=== PATIENT | male | born 1960 | race Two or more races ===

== ENCOUNTER 2018-09-21 10:32 | Inpatient (IN) | payer OTHER ==
[2018-09-21 11:20] VITALS: BMI 27.3
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
[2018-09-21] MEDS ORDERED: MAGNESIUM CITRATE 300 ML BOTTLE PO PRN (13:13)
[2018-09-21] MEDS ORDERED: MAG HYDROX/AL HYDROX/SIMETH 30 ML UNIT-DOSE CUP PO PRN (13:13)
[2018-09-21] MEDS ORDERED: hydrOXYzine PAMOATE 25 MG CAPSULE (FP) PO PRN (13:13)
[2018-09-21] MEDS ORDERED: cloNIDine HCL 0.1 MG TABLET PO PRN (13:13)
[2018-09-21] MEDS ORDERED: IBUPROFEN 400 MG TABLET (FP) PO PRN (13:13)
[2018-09-21] MEDS ORDERED: BISMUTH SUBSALICYLATE 262 MG/15 ML BTL PO PRN (13:13)
[2018-09-21] MEDS ORDERED: MENTHOL/PHENOL 1 EACH UD MM PRN (13:13)
[2018-09-21] MEDS ORDERED: ACETAMINOPHEN 325 MG TABLET (FP) PO PRN ×2 (13:13)
[2018-09-21] MEDS ORDERED: NICOTINE POLACRILEX 2 MG GUM BUC PRN (13:13)
[2018-09-21] MEDS ORDERED: MAGNESIUM HYDROX 2400MG/30ML ORAL SUSPENSION 30 ML CUP PO PRN (13:13)
[2018-09-21] MEDS ORDERED: MELATONIN 5 MG TABLETS PO PRN (13:13)
[2018-09-21] MEDS ORDERED: METHOCARBAMOL 500 MG TABLET PO PRN (13:13)
[2018-09-21] MEDS ORDERED: ALBUTEROL SO4 8 GM HFA INHALER IH PRN (13:20)
[2018-09-21] MEDS ORDERED: METHADONE HCL 10 MG TABLET (FOR DETOX USE ONLY) PO ONE ×2 (13:55→23:00)
[2018-09-21] MEDS: diazePAM 5 MG TABLET PO PRN ×2 (14:05→22:44)
--- NOTE | 2018-09-21 16:19 | EKG ---
Test Reason : Blood Pressure : / mmHG Vent. Rate : 060 BPM Atrial Rate : 060 BPM P-R Int : 174 ms QRS Dur : 076 ms QT Int : 396 ms P-R-T Axes : 061 050 038 degrees QTc Int : 396 ms NORMAL SINUS RHYTHM NORMAL ECG NO PREVIOUS ECGS AVAILABLE Confirmed by IGGY DUMONT MD ([id number]) on 09/21/2018 4:19:10 PM Referred By: Confirmed By:IGGY DUMONT MD
[2018-09-21 16:53] LABS: HEMATOCRIT 42.3 % (35.4-49); HEMOGLOBIN 14.4 GM/dL (11.7-16.9); MCH 31.9 pg (25.7-33.7); MEAN CELL VOLUME 93.8 fl (80-96); MEAN PLT VOLUME 11.2 fl (7.5-11.1); PLATELET COUNT 152 K/MM3 (134-434); RBC 4.51 M/mm3 (4.00-5.60); RDW 12.9 % (11.9-15.9); WHITE BLOOD COUNT 7.7 K/mm3 (4.0-10.0)
[2018-09-21 17:06] LABS: ALBUMIN 3.8 g/dl (3.4-5.0); ALK PHOS 59 U/L (45-117); ANION GAP 5 MMOL/L (8-16); BILIRUBIN,TOTAL 0.8 mg/dL (0.2-1); BLOOD UREA NITROGEN 13 mg/dL (7-18); CALCIUM 9.3 mg/dL (8.5-10.1); CHLORIDE 101 mmol/L (98-107); CO2 30 mmol/L (21-32); CREATININE 0.8 mg/dL (0.55-1.3); GLUCOSE,RANDOM 92 mg/dL (74-106); POTASSIUM 4.3 mmol/L (3.5-5.1); SGOT/AST 64 U/L (15-37); SGPT/ALT 86 U/L (13-61); SODIUM 136 mmol/L (136-145); TOT PROT 8.1 g/dl (6.4-8.2)
[2018-09-21 17:12] LABS: URINE APPEARANCE TURBID; URINE BILIRUBIN 1+ (NEGATIVE); URINE COLOR DK YELLOW; URINE GLUCOSE (UA) NEGATIVE (NEGATIVE); URINE KETONE NEGATIVE (NEGATIVE); URINE LEUK ESTERASE NEGATIVE (NEGATIVE); URINE NITRITE NEGATIVE (NEGATIVE); URINE PROTEIN NEGATIVE (NEGATIVE)
[2018-09-21] MEDS: THIAMINE HCL 100 MG TABLET (FP) PO SCH (22:30)
[2018-09-22] MEDS ORDERED: METHADONE HCL 10 MG TABLET (FOR DETOX USE ONLY) PO ONE (10:00)
[2018-09-22] MEDS: PRENATAL VITAMINS W/ FOLIC ACID TABLET (FP) PO SCH (10:27)
[2018-09-22] MEDS: diazePAM 5 MG TABLET PO PRN ×2 (10:29→22:02)
--- NOTE | 2018-09-22 11:08 | PN ---
B[facility] COWS - Scale Resting Pulse: 1= MI 81-100 Sweatin=Flushed/Facial Moisture Restless Observation: 1= Difficult to Sit Still Pupil Size: 0= Normal to Room Light Bone or Joint Aches: 2= Severe Diffuse Aches Runny Nose/ Eye Tearin= Runny Nose/Eyes GI Upset > 30mins: 1= Stomach Cramp Tremor Observation of Outstretched Hands: 2= Slight Tremor Visible Yawning Observation: 2= >3x During Session Anxiety or Irritability: 2=Irritable/Anxious Goose Flesh Skin: 0=Smooth Skin COWS Score: 15 BHS Progress Note (SOAP) Subjective: sweats shakes interrupted sleep body aches irritable agitation Objective: 09/22/18 11:07 Vital Signs Temperature 98.1 F 09/22/18 09:23 Pulse Rate 85 09/22/18 09:23 Respiratory Rate 18 09/22/18 09:23 Blood Pressure 126/72 09/22/18 09:23 O2 Sat by Pulse Oximetry (%) Laboratory Tests 09/21/18 09/21/18 09/21/18 13:10 13:10 15:00 WBC 7.7 RBC 4.51 Hgb 14.4 Hct 42.3 MCV 93.8 MCH 31.9 MCHC 34.0 RDW 12.9 Plt Count 152 MPV 11.2 H Sodium 136 Potassium 4.3 Chloride 101 Carbon Dioxide 30 Anion Gap 5 L BUN 13 Creatinine 0.8 Creat Clearance w eGFR 100.00 Random Glucose 92 Calcium 9.3 Total Bilirubin 0.8 AST 64 H ALT 86 H Alkaline Phosphatase 59 Total Protein 8.1 Albumin 3.8 Urine Color Dk yellow Urine Appearance Turbid Urine pH 5.0 Ur Specific [place] 1.028 Urine Protein Negative Urine Glucose (UA) Negative Urine Ketones Negative Urine Blood Negative Urine Nitrite Negative Urine Bilirubin 1+ H Urine Urobilinogen 1.0 Ur Leukocyte Esterase Negative aaox3 ambulating no acute distress Assessment: 09/22/18 11:08 withdrawal sx Plan: continue detox increase fluids
--- NOTE | 2018-09-22 18:55 | PN ---
BHS Progress Note Note: S:Pt c/o generalized dry skin/itching. O:No rash noted. Noted dry skin. Vital Signs 09/22/18 09/22/18 13:22 16:59 Temperature 98.6 F 98.6 F Pulse Rate 72 97 H Respiratory 18 18 Rate Blood Pressure 127/74 136/80 A:Dry skin P: Eucerin cream/aveeno soap to be applied to affected area.
[2018-09-22] MEDS: MINERAL OIL/PETROLAT/WATER TOPICAL CREAM 113 GM JAR TP SCH (22:03)
[2018-09-22] MEDS: THIAMINE HCL 100 MG TABLET (FP) PO SCH (22:06)
[2018-09-22] MEDS: COLLOIDAL OATMEAL 1 BAR EACH TP SCH (23:23)
[2018-09-23] MEDS ORDERED: METHADONE HCL 10 MG TABLET (FOR DETOX USE ONLY) PO ONE (10:00)
[2018-09-23] MEDS: COLLOIDAL OATMEAL 1 BAR EACH TP SCH (10:04)
[2018-09-23] MEDS: PRENATAL VITAMINS W/ FOLIC ACID TABLET (FP) PO SCH (10:05)
[2018-09-23] MEDS: MINERAL OIL/PETROLAT/WATER TOPICAL CREAM 113 GM JAR TP SCH ×2 (10:05→22:29)
--- NOTE | 2018-09-23 13:26 | PN ---
[facility] CIWA - CIWA Score Nausea/Vomitin-No Nausea/No Vomiting Muscle Tremors: 3 Anxiety: 3 Agitation: 3 Paroxysmal Sweats: 3 Orientation: 0-Oriented Tacttile Disturbances: 0-None Auditory Disturbances: 0-None Visual Disturbances: 0-None Headache: 0-None Present CIWA-Ar Total Score: 12 S Progress Note (SOAP) Subjective: back pain sweats interrupted sleep Objective: 09/23/18 13:25 Vital Signs Temperature 98.1 F 09/23/18 09:47 Pulse Rate 89 09/23/18 09:47 Respiratory Rate 18 09/23/18 09:47 Blood Pressure 130/86 09/23/18 09:47 O2 Sat by Pulse Oximetry (%) Laboratory Tests 09/21/18 09/21/18 09/21/18 13:10 13:10 13:10 WBC 7.7 RBC 4.51 Hgb 14.4 Hct 42.3 MCV 93.8 MCH 31.9 MCHC 34.0 RDW 12.9 Plt Count 152 MPV 11.2 H Sodium 136 Potassium 4.3 Chloride 101 Carbon Dioxide 30 Anion Gap 5 L BUN 13 Creatinine 0.8 Creat Clearance w eGFR 100.00 Random Glucose 92 Calcium 9.3 Total Bilirubin 0.8 AST 64 H ALT 86 H Alkaline Phosphatase 59 Total Protein 8.1 Albumin 3.8 Urine Color Urine Appearance Urine pH Ur Specific [place] Urine Protein Urine Glucose (UA) Urine Ketones Urine Blood Urine Nitrite Urine Bilirubin Urine Urobilinogen Ur Leukocyte Esterase RPR Titer Nonreactive 09/21/18 15:00 WBC RBC Hgb Hct MCV MCH MCHC RDW Plt Count MPV Sodium Potassium Chloride Carbon Dioxide Anion Gap BUN Creatinine Creat Clearance w eGFR Random Glucose Calcium Total Bilirubin AST ALT Alkaline Phosphatase Total Protein Albumin Urine Color Dk yellow Urine Appearance Turbid Urine pH 5.0 Ur Specific [place] 1.028 Urine Protein Negative Urine Glucose (UA) Negative Urine Ketones Negative Urine Blood Negative Urine Nitrite Negative Urine Bilirubin 1+ H Urine Urobilinogen 1.0 Ur Leukocyte Esterase Negative RPR Titer labs noted aaox3 ambulating no acute distress will repeat ast/alt Assessment: 09/23/18 13:26 withdrawal sx Plan: continue detox repeat liver enzymes d/c tylenol motrin prn lidocaine patch
[2018-09-23] MEDS: LIDOCAINE 5% TOPICAL PATCH TP SCH (14:25)
[2018-09-23] MEDS ORDERED: LIDOCAINE PATCH REMOVAL MC SCH (22:00)
[2018-09-23] MEDS: THIAMINE HCL 100 MG TABLET (FP) PO SCH (22:30)
[2018-09-23] MEDS: diazePAM 5 MG TABLET PO PRN (22:31)
[2018-09-24 09:37] VITALS: BP 132/76; PULSE 85; TEMP 97.9
[2018-09-24] MEDS ORDERED: METHADONE HCL 10 MG TABLET (FOR DETOX USE ONLY) ONE (09:50)
[2018-09-24] MEDS ORDERED: METHADONE HCL 5 MG TABLET (FOR DETOX USE ONLY) ONE (09:50)
[2018-09-24] MEDS ORDERED: METHADONE HCL 10 MG TABLET (FOR DETOX USE ONLY) PO ONE (10:00)
[2018-09-24] MEDS ORDERED: METHADONE (DETOX) 10 MG, METHADONE (DETOX) 5 MG PO ONE (10:00)
[2018-09-24] MEDS: COLLOIDAL OATMEAL 1 BAR EACH TP SCH (10:21)
[2018-09-24] MEDS: PRENATAL VITAMINS W/ FOLIC ACID TABLET (FP) PO SCH (10:22)
[2018-09-24] MEDS: diazePAM 5 MG TABLET PO PRN (10:22)
[2018-09-24] MEDS: LIDOCAINE 5% TOPICAL PATCH TP SCH (10:24)
[2018-09-24] MEDS: MINERAL OIL/PETROLAT/WATER TOPICAL CREAM 113 GM JAR TP SCH (10:28)
[2018-09-24 11:08] LABS: SGOT/AST 82 U/L (15-37); SGPT/ALT 84 U/L (13-61)
--- NOTE | 2018-09-24 12:08 | PN ---
[facility] Progress Note Note: Patient requested to sign out AMA. Patient stated " This place feels like [facility]" . Patient encouraged to complete detox and explained risk factors of relapse and potential overdose with signing out AMA. Patient refused to stay in treatment. Patient denies SI/HI and is medically stable. Patient encouraged to follow up with PCP within one week of d/c to continue medical management. Patient refused Narcan kit. AMA forms given to patient by nursing staff and signed by patient .
--- NOTE | 2018-09-24 12:09 | DS ---
[facility] Detox Discharge Summary Admission Date: 09/21/18 Discharge Date: 09/24/18 - History Present History: Opioid Dependence - Physical Exam Results Vital Signs: Vital Signs Temperature 97.9 F 09/24/18 09:36 Pulse Rate 85 09/24/18 09:36 Respiratory Rate 18 09/24/18 09:36 Blood Pressure 132/76 09/24/18 09:36 O2 Sat by Pulse Oximetry (%) - Medication Discharge Medications: Ambulatory Orders Albuterol Sulfate Inhaler - [Ventolin Hfa Inhaler -] 2 inh PO Q4H PRN 09/21/18 - AMA Did Patient Leave Against Medical Advice: Yes
[2018-09-25] MEDS ORDERED: METHADONE HCL 5 MG TABLET (FOR DETOX USE ONLY) PO ONE (06:00)
[2018-09-25] MEDS ORDERED: METHADONE HCL 10 MG TABLET (FOR DETOX USE ONLY) PO ONE (10:00)
[2018-09-26] MEDS ORDERED: METHADONE HCL 5 MG TABLET (FOR DETOX USE ONLY) PO ONE (06:00)
== END 2018-09-24 11:41 | disposition left against medical advice (07) | DRG 770 ==
LOC: YASAS 10:32 → Y6N 13:02
PROVIDERS: ADMIT Surgery; ATTEND Surgery
PROC: HZ2ZZZZ Detoxification Services for Substance Abuse Treatment (ICD-10-PCS; principal; 2018-09-21)
DX: F11.23 Opioid dependence with withdrawal (principal); F17.213 Nicotine dependence, cigarettes, with withdrawal; G47.00 Insomnia, unspecified; I10 Essential (primary) hypertension; E78.00 Pure hypercholesterolemia, unspecified; E86.0 Dehydration; L85.3 Xerosis cutis; L29.8 Other pruritus; B18.2 Chronic viral hepatitis C; R63.4 Abnormal weight loss; Z68.27 Body mass index [BMI] 27.0-27.9, adult
CPT/HCPCS: 36415; 80053; 81003; 84450; 84460; 85027; 86593; 93005; 93010; J0735